=== PATIENT | male | born 1995 | race African-American/Black ===

== ENCOUNTER 2022-12-14 16:54 | Emergency (ER) | payer SELFPAY ==
[~2022-12-14] VITALS: Ht 190.5 cm; Wt 84.0 kg
[2022-12-14 16:59] VITALS: BP 134/69; PULSE 52; RESP 16; TEMP 98.9; O2SAT 100
[2022-12-14] MEDS ORDERED: CETI1TAB PO (18:19)
== END 2022-12-14 18:34 | disposition home or self-care (01) ==
LOC: ER 16:54
DX: J32.9 Chronic sinusitis, unspecified (principal)
CPT/HCPCS: 99281; 99282